=== PATIENT | male | born 1950 | race Caucasian/White ===

== ENCOUNTER 2021-03-20 21:27 | Observation (INO) | payer MEDICARE, BC ==
[2021-03-20 22:20] LABS: #Eosinphils 0.1 thou/uL (0.0-0.7); #Lymphocytes 0.8 thou/uL (1.20-3.40); #Monocytes 0.5 thou/uL (0.11-0.59); #Neutrophils 4.9 thou/uL (1.40-6.50); %Basophils 0.4 % (0.0-1.0); %Lymphocytes 12.6 % (21.0-51.0); %Monocytes 8.1 % (0.0-10.0); %Neutrophils 76.8 % (42.0-75.0); Hemoglobin 12.4 g/dL (14.0-18.0); Mean Corpuscular Hemoglobin 32.3 pg (27.0-31.0); Mean Platelet Volume 7.5 fL (7.4-10.4); Platelet Count 188 thou/uL (130-400); RBC Distribution Width 13.6 % (11.5-14.5); Red Blood Cell (RBC) Count 3.85 mill/uL (4.70-6.10); White Blood Cell (WBC) Count 6.4 thou/uL (4.8-10.8)
[2021-03-20 22:33] LABS: PTT 25.9 sec (22.9-36.1); Prothrombin Time 12.9 sec (12.0-14.7)
[2021-03-20 22:46] LABS: ALT (SGPT) 19 U/L (8-55); AST (SGOT) 19 U/L (5-34); Albumin 4.2 g/dL (3.4-4.8); Alkaline Phosphatase 67 U/L (40-110); Anion Gap 16 mmol/L (10-20); BUN (Urea Nitrogen) 26 mg/dL (8.4-25.7); Bilirubin, Total 0.3 mg/dL (0.2-1.2); CK (CPK) 68 U/L (30-200); Calc. Creatinine Clearance 0 mL/min (70-130); Calcium 8.8 mg/dL (7.8-10.44); Carbon Dioxide 23 mmol/L (23-31); Chloride 105 mmol/L (98-107); Globulin 2.8 g/dL (2.4-3.5); Glucose 123 mg/dL (83-110); Potassium 3.9 mmol/L (3.5-5.1); Sodium 140 mmol/L (136-145)
[2021-03-20] MEDS ORDERED: Atenolol 50 MG TAB PO SCH (23:15)
[2021-03-20 23:21] LABS: Acetaminophen Less than 6.0 mcg/mL (10.0-30.0); Alcohol Less than 10 mg/dL (Less than 10); Salicylate Less than 8.0 mg/dL (15.0-30.0)
[2021-03-20 23:23] LABS: Bilirubin Negative (Negative); Blood, Urine Negative (Negative); Clarity Clear (Clear); Glucose, Urine (Dipstick) Normal (Negative); Ketone, Urine Trace mg/dL (Negative); Leukocyte Negative Leu/uL (Negative); Nitrite Negative (Negative); Protein, Urine (Dipstick) 10 mg/dL (Neg-Trace); Specific Gravity, Urine 1.025 (1.002-1.036); Urobilinogen Normal mg/dL (Less than 2)
[2021-03-20 23:32] LABS: Amphetamine Not Detected (NotDetected); Barbiturates Screen Not Detected (NotDetected); Benzodiazepine Screen Not Detected (NotDetected); Cocaine Metabolite Screen Not Detected (NotDetected); Methadone Not Detected (NotDetected); Methamphetamine Not Detected (NotDetected); Opiate Screen Not Detected (NotDetected); Oxycodone Screen Not Detected (NotDetected); Phencyclidine (PCP) Not Detected (NotDetected); THC/Cannabinoid Screen Not Detected (NotDetected); Tricyclic Screen Not Detected (NotDetected)
[2021-03-20] MEDS ORDERED: Aspirin Chewable 81 MG TAB ONE (23:45)
[2021-03-21] MEDS ORDERED: Acetaminophen 325 MG TAB PO PRN (01:28)
[2021-03-21] MEDS ORDERED: Acetaminophen 650 MG Suppository PR PRN (01:28)
[2021-03-21] MEDS ORDERED: Ondansetron ODT 4 MG TAB PO PRN (01:28)
[2021-03-21] MEDS ORDERED: Ondansetron PF 4 MG/2 ML Vial IVP PRN (01:28)
[2021-03-21 01:30] VITALS: BMI 29.7
[2021-03-21] MEDS ORDERED: Dextrose 50% Abboject 50 ML SYRINGE SLOW IVP PRN (01:34)
[2021-03-21] MEDS ORDERED: HumaLOG 300 UNITS/3 ML VIAL SC PRN ×2 (01:34)
[2021-03-21] MEDS ORDERED: Dextrose 5% in Water 1,000 ML IV PRN (01:34)
[2021-03-21] MEDS ORDERED: hydrALAZINE 20 MG/ML VIAL SLOW IVP PRN (01:34)
[2021-03-21 03:01] LABS: Troponin I Less than 0.010 ng/mL (< 0.028)
[2021-03-21 04:35] LABS: #Eosinphils 0.1 thou/uL (0.0-0.7); #Lymphocytes 0.6 thou/uL (1.20-3.40); #Monocytes 0.4 thou/uL (0.11-0.59); #Neutrophils 4.3 thou/uL (1.40-6.50); %Basophils 0.7 % (0.0-1.0); %Eosinophils 2.3 % (0.0-10.0); %Lymphocytes 11.4 % (21.0-51.0); %Monocytes 7.9 % (0.0-10.0); %Neutrophils 77.8 % (42.0-75.0); Mean Corpuscular HGB CONC 34.4 g/dL (32.0-36.0); Mean Corpuscular Hemoglobin 32.6 pg (27.0-31.0); Mean Corpuscular Volume 94.9 fL (78.0-98.0); Mean Platelet Volume 7.7 fL (7.4-10.4); Platelet Count 177 thou/uL (130-400); RBC Distribution Width 13.5 % (11.5-14.5); Red Blood Cell (RBC) Count 3.67 mill/uL (4.70-6.10); White Blood Cell (WBC) Count 5.6 thou/uL (4.8-10.8)
[2021-03-21 04:50] LABS: Anion Gap 12 mmol/L (10-20); BUN (Urea Nitrogen) 23 mg/dL (8.4-25.7); Calc. Creatinine Clearance 103 mL/min (70-130); Calcium 8.9 mg/dL (7.8-10.44); Carbon Dioxide 25 mmol/L (23-31); Cardiac Risk 3.1 (Less than 4.5); Chloride 105 mmol/L (98-107); Cholesterol 115 mg/dl (< 200 Desired); Glucose 235 mg/dL (83-110); HDL Cholesterol 37 mg/dL (>60 Neg Risk); LDL Cholesterol, Calculated 43 mg/dL; Potassium 3.8 mmol/L (3.5-5.1); Sodium 138 mmol/L (136-145); Triglycerides 176 mg/dL (Less than 150)
[2021-03-21 05:01] LABS: Troponin I Less than 0.010 ng/mL (< 0.028)
[2021-03-21] MEDS ORDERED: Lorazepam 0.5 MG TAB PO PRN (07:47)
[2021-03-21] MEDS ORDERED: Aspirin 81 mg Enteric Coated Tablet PO SCH (09:00)
[2021-03-21] MEDS ORDERED: ISOVUE-370 76%-LOCM 1 ML ONE (11:39)
[2021-03-21 11:56] VITALS: BP 148/90; TEMP 98.8
[2021-03-21 17:14] LABS: SARS-CoV-2 PCR by NAA Not Detected (NotDetected)
== END 2021-03-21 15:40 | disposition home or self-care (01) ==
LOC: ERS 21:27 → NEURO 03-21 00:19
PROVIDERS: ADMIT Student in an Organized Health Care Education/Training Program; ATTEND Family Medicine
DX: R41.0 Disorientation, unspecified (principal); R47.01 Aphasia; R41.3 Other amnesia; G43.109 Migraine with aura, not intractable, without status migrainosus; E11.9 Type 2 diabetes mellitus without complications; K21.9 Gastro-esophageal reflux disease without esophagitis; I10 Essential (primary) hypertension; E03.9 Hypothyroidism, unspecified; Z85.46 Personal history of malignant neoplasm of prostate; Z79.84 Long term (current) use of oral hypoglycemic drugs; Z79.899 Other long term (current) drug therapy; Z20.822 Contact with and (suspected) exposure to COVID-19
CPT/HCPCS: 70450; 70496; 70498; 70551; 71045; 80048; 80053; 80061; 80306; 80307; 81003; 82550; 84484 ×3; 85025 ×2; 85610; 85730; 93005; 97139 ×5; 99285; U0003; U0005; 36415; 36416; G0378; Q9966

== ENCOUNTER 2021-04-25 10:22 | Outpatient (CLI) | payer MEDICARE, BC ==
[2021-04-25 12:12] LABS: #Basophils 0.1 10x3/uL (0.0-0.2); #Eosinphils 0.3 10x3/uL (0.0-0.5); #Monocytes 0.4 10x3/uL (0.0-1.1); #Neutrophils 3.2 10x3/uL (1.5-8.4); %Basophils 1.2 % (0.0-2.0); %Eosinophils 6.8 % (0.0-6.0); %Lymphocytes 17.5 % (18.0-47.0); %Monocytes 8.9 % (0.0-10.0); %Neutrophils 65.2 % (40.0-75.0); Hemoglobin 12.5 g/dL (13.5-17.5); Mean Corpuscular HGB CONC 32.5 g/dL (32.0-36.0); Mean Corpuscular Hemoglobin 30.8 pg (27.0-33.0); Mean Corpuscular Volume 94.8 fl (81.2-95.1); Mean Platelet Volume 10.9 fl (7.4-10.4); Platelet Count 235 10x3/uL (150-450); RBC Distribution Width 14.6 % (11.5-14.5); Red Blood Cell (RBC) Count 4.06 10x6/uL (4.32-5.72)
[2021-04-25 12:48] LABS: ALT (SGPT) 20 U/L (8-55); AST (SGOT) 17 U/L (5-34); Albumin 4.5 g/dL (3.4-4.8); Alkaline Phosphatase 69 U/L (40-110); Anion Gap 16 mmol/L (10-20); BUN (Urea Nitrogen) 16 mg/dL (8.4-25.7); Bilirubin, Total 0.4 mg/dL (0.2-1.2); Calc. Creatinine Clearance 0 mL/min (70-130); Calcium 9.1 mg/dL (7.8-10.44); Carbon Dioxide 23 mmol/L (23-31); Chloride 108 mmol/L (98-107); Globulin 2.6 g/dL (2.4-3.5); Glucose 157 mg/dL (83-110); Potassium 4.5 mmol/L (3.5-5.1); Protein, Total 7.1 g/dL (5.8-8.1); Sodium 142 mmol/L (136-145)
[2021-04-26 12:10] LABS: SARS-CoV-2 PCR by NAA Not Detected (NotDetected)
== END 2021-04-25 10:23 | disposition home or self-care (01) ==
LOC: LABBT 10:22
PROVIDERS: ATTEND Surgery
DX: Z01.812 Encounter for preprocedural laboratory examination (principal); K40.90 Unilateral inguinal hernia, without obstruction or gangrene, not specified as recurrent; Z20.822 Contact with and (suspected) exposure to COVID-19
CPT/HCPCS: 80053; 85025; U0003; U0005

== ENCOUNTER 2021-04-30 07:33 | Day surgery (SDC) | payer MEDICARE, BC ==
[2021-04-23 12:10] VITALS: BMI 29.5
[2021-04-30] MEDS ORDERED: Bupivacaine 0.25% HCL 30 ML VIAL ONE (09:25)
[2021-04-30] MEDS ORDERED: EPINEPHrine 1 MG/ML AMP ONE (09:25)
[2021-04-30] MEDS ORDERED: Fentanyl 100 MCG/2 ML VIAL ONE (09:29)
[2021-04-30] MEDS ORDERED: ceFAZolin 2 GM/Dextrose 50 ML IVPB ONE (09:29)
[2021-04-30] MEDS ORDERED: HYDROmorphone 0.5 MG/0.5 ML SYRINGE ONE (09:29)
[2021-04-30] MEDS ORDERED: Dexamethasone 20 MG/5 ML VIAL ONE (09:34)
[2021-04-30] MEDS ORDERED: Ondansetron PF 4 MG/2 ML Vial ONE (09:34)
[2021-04-30] MEDS ORDERED: Lidocaine 1% PF 5 ML VIAL ONE (09:34)
[2021-04-30] MEDS ORDERED: PROPOFOL 200 MG/20 ML VIAL ONE (09:34)
[2021-04-30] MEDS ORDERED: Glycopyrrolate 0.2 MG/ML 5 ML SYRINGE ONE (09:34)
[2021-04-30] MEDS ORDERED: Rocuronium Bromide 10 MG/ML (10ML VIAL) ONE (09:34)
[2021-04-30] MEDS ORDERED: HYDROcodone/Acetaminophen 5/325 mg Tablet ONE (11:30)
== END 2021-04-30 12:45 | disposition home or self-care (01) ==
LOC: SDC 07:33
PROVIDERS: ATTEND Surgery
PROC: 0YU50JZ Supplement Right Inguinal Region with Synthetic Substitute, Open Approach (ICD-10-PCS; principal; 2021-04-30)
DX: K40.90 Unilateral inguinal hernia, without obstruction or gangrene, not specified as recurrent (principal); K21.9 Gastro-esophageal reflux disease without esophagitis; I42.9 Cardiomyopathy, unspecified; G43.909 Migraine, unspecified, not intractable, without status migrainosus; Z79.82 Long term (current) use of aspirin; Z79.84 Long term (current) use of oral hypoglycemic drugs; Z79.899 Other long term (current) drug therapy
CPT/HCPCS: C1781; J0171; J0690; J1100; J1170; J2405; J2704; J3010; S0020

== ENCOUNTER 2021-05-01 12:29 | Emergency (ER) | payer MEDICARE, BC ==
[2021-05-01 13:29] LABS: #Eosinphils 0.1 thou/uL (0.0-0.7); #Lymphocytes 1.1 thou/uL (1.20-3.40); #Monocytes 0.8 thou/uL (0.11-0.59); #Neutrophils 6.1 thou/uL (1.40-6.50); %Basophils 0.1 % (0.0-1.0); %Eosinophils 1.3 % (0.0-10.0); %Lymphocytes 13.8 % (21.0-51.0); %Monocytes 9.6 % (0.0-10.0); %Neutrophils 75.1 % (42.0-75.0); Hemoglobin 13.4 g/dL (14.0-18.0); Mean Corpuscular HGB CONC 34.2 g/dL (32.0-36.0); Mean Corpuscular Hemoglobin 31.8 pg (27.0-31.0); Mean Platelet Volume 7.7 fL (7.4-10.4); Platelet Count 230 thou/uL (130-400); RBC Distribution Width 14.1 % (11.5-14.5); White Blood Cell (WBC) Count 8.1 thou/uL (4.8-10.8)
[2021-05-01 13:49] LABS: Acetaminophen Less than 6.0 mcg/mL (10.0-30.0); Alcohol Less than 10 mg/dL (Less than 10); Salicylate Less than 8.0 mg/dL (15.0-30.0)
[2021-05-01 13:51] LABS: ALT (SGPT) 18 U/L (8-55); AST (SGOT) 16 U/L (5-34); Albumin 4.6 g/dL (3.4-4.8); Alkaline Phosphatase 78 U/L (40-110); Anion Gap 16 mmol/L (10-20); BUN (Urea Nitrogen) 13 mg/dL (8.4-25.7); Bilirubin, Total 0.5 mg/dL (0.2-1.2); Calc. Creatinine Clearance 0 mL/min (70-130); Calcium 10.3 mg/dL (7.8-10.44); Carbon Dioxide 25 mmol/L (23-31); Chloride 104 mmol/L (98-107); Globulin 3.2 g/dL (2.4-3.5); Glucose 204 mg/dL (83-110); Potassium 3.8 mmol/L (3.5-5.1); Protein, Total 7.8 g/dL (5.8-8.1); Sodium 141 mmol/L (136-145)
[2021-05-01 14:33] LABS: Bilirubin Negative (Negative); Blood, Urine Negative (Negative); Clarity Clear (Clear); Glucose, Urine (Dipstick) Normal (Negative); Ketone, Urine Negative (Negative); Leukocyte Negative Leu/uL (Negative); Nitrite Negative (Negative); Protein, Urine (Dipstick) Negative (Neg-Trace); Specific Gravity, Urine 1.018 (1.002-1.036); Urobilinogen Normal mg/dL (Less than 2)
[2021-05-01 14:43] LABS: Amphetamine Not Detected (NotDetected); Barbiturates Screen Not Detected (NotDetected); Benzodiazepine Screen Not Detected (NotDetected); Cocaine Metabolite Screen Not Detected (NotDetected); Methadone Not Detected (NotDetected); Methamphetamine Not Detected (NotDetected); Opiate Screen Detected (NotDetected); Oxycodone Screen Not Detected (NotDetected); Phencyclidine (PCP) Not Detected (NotDetected); THC/Cannabinoid Screen Not Detected (NotDetected); Tricyclic Screen Not Detected (NotDetected)
== END 2021-05-01 15:33 | disposition home or self-care (01) ==
LOC: ERS 12:29
DX: R44.1 Visual hallucinations (principal); M10.9 Gout, unspecified; K21.9 Gastro-esophageal reflux disease without esophagitis; I10 Essential (primary) hypertension; E03.9 Hypothyroidism, unspecified; E11.9 Type 2 diabetes mellitus without complications; R29.700 NIHSS score 0; Z79.899 Other long term (current) drug therapy; Z79.82 Long term (current) use of aspirin
CPT/HCPCS: 71045; 80053; 80306; 80307; 81003; 85025

== ENCOUNTER 2021-08-01 12:02 | Outpatient (CLI) | payer MEDICARE, BC ==
[2021-08-01 13:59] LABS: #Basophils 0.1 10x3/uL (0.0-0.2); #Eosinphils 0.2 10x3/uL (0.0-0.5); #Monocytes 0.7 10x3/uL (0.0-1.1); #Neutrophils 6.6 10x3/uL (1.5-8.4); %Basophils 0.8 % (0.0-2.0); %Lymphocytes 12.2 % (18.0-47.0); %Monocytes 7.7 % (0.0-10.0); Hemoglobin 13.2 g/dL (13.5-17.5); Mean Corpuscular HGB CONC 33.2 g/dL (32.0-36.0); Mean Corpuscular Hemoglobin 30.6 pg (27.0-33.0); Mean Corpuscular Volume 91.9 fl (81.2-95.1); Platelet Count 250 10x3/uL (150-450); RBC Distribution Width 14.5 % (11.5-14.5); Red Blood Cell (RBC) Count 4.32 10x6/uL (4.32-5.72); White Blood Cell (WBC) Count 8.6 10x3/uL (3.5-10.5)
[2021-08-01 14:24] LABS: ALT (SGPT) 19 U/L (8-55); AST (SGOT) 19 U/L (5-34); Albumin 4.8 g/dL (3.4-4.8); Alkaline Phosphatase 98 U/L (40-110); Anion Gap 16 mmol/L (10-20); BUN (Urea Nitrogen) 16 mg/dL (8.4-25.7); Bilirubin, Total 0.4 mg/dL (0.2-1.2); Calc. Creatinine Clearance 0 mL/min (70-130); Calcium 9.4 mg/dL (7.8-10.44); Carbon Dioxide 24 mmol/L (23-31); Chloride 103 mmol/L (98-107); Globulin 2.8 g/dL (2.4-3.5); Glucose 164 mg/dL (83-110); Potassium 4.4 mmol/L (3.5-5.1); Protein, Total 7.6 g/dL (5.8-8.1); Sodium 139 mmol/L (136-145)
[2021-08-02 12:30] LABS: SARS-CoV-2 PCR by NAA Not Detected (NotDetected)
== END 2021-08-01 12:03 | disposition home or self-care (01) ==
LOC: LABBT 12:02
PROVIDERS: ATTEND Surgery
DX: Z01.818 Encounter for other preprocedural examination (principal); K40.91 Unilateral inguinal hernia, without obstruction or gangrene, recurrent; Z20.822 Contact with and (suspected) exposure to COVID-19
CPT/HCPCS: 80053; 85025; 93005; U0003; U0005; 93010

== ENCOUNTER 2021-08-06 06:06 | Day surgery (SDC) | payer MEDICARE, BC ==
[2021-08-04 15:17] VITALS: BMI 28.7
[2021-08-06] MEDS ORDERED: Famotidine/PF 20 mg/2ml Vial ONE (06:38)
[2021-08-06] MEDS ORDERED: Fentanyl 250 MCG/5 ML VIAL ONE (06:38)
[2021-08-06] MEDS ORDERED: Lidocaine 1% w/Epinephrine 1:100K 20 ML VIAL ONE (06:42)
[2021-08-06] MEDS ORDERED: Bupivacaine 0.25% 10 ML VIAL ONE (06:42)
[2021-08-06] MEDS ORDERED: Phenylephrine 10 MG/ML VIAL ONE (07:28)
[2021-08-06] MEDS ORDERED: ceFAZolin (BATCH) 2 GM/100 ML BAG ONE ×2 (07:30→07:31)
[2021-08-06] MEDS ORDERED: Lidocaine 1% PF 5 ML VIAL ONE (07:48)
[2021-08-06] MEDS ORDERED: ePHEDrine 50 MG/ML VIAL ONE (07:48)
[2021-08-06] MEDS ORDERED: Rocuronium Bromide 10 MG/ML (10ML VIAL) ONE (07:48)
[2021-08-06] MEDS ORDERED: PHENYLEPHRINE-NS 100 MCG/ML 10 ML SYRINGE ONE (07:48)
[2021-08-06] MEDS ORDERED: Glycopyrrolate 0.2 MG/ML 5 ML SYRINGE ONE (07:48)
[2021-08-06] MEDS ORDERED: Ondansetron PF 4 MG/2 ML Vial ONE ×2 (07:48→11:07)
[2021-08-06] MEDS ORDERED: Ketorolac Tromethamine 30 MG/ML VIAL ONE (07:48)
[2021-08-06] MEDS ORDERED: PROPOFOL 200 MG/20 ML VIAL ONE (07:48)
[2021-08-06] MEDS ORDERED: fentaNYL Citrate/PF 100 MCG/2 ML SYRINGE ONE (08:32)
[2021-08-06] MEDS ORDERED: hydrALAZINE 20 MG/ML VIAL ONE (08:33)
[2021-08-06] MEDS ORDERED: Fentanyl 100 MCG/2 ML VIAL ONE (10:39)
[2021-08-06] MEDS ORDERED: Tamsulosin HCl 0.4 MG CAP ONE (13:27)
== END 2021-08-06 14:25 | disposition home or self-care (01) ==
LOC: SDC 06:06
PROVIDERS: ATTEND Surgery
PROC: 0YU54JZ Supplement Right Inguinal Region with Synthetic Substitute, Percutaneous Endoscopic Approach (ICD-10-PCS; principal; 2021-08-06)
PROC: 8E0W4CZ Robotic Assisted Procedure of Trunk Region, Percutaneous Endoscopic Approach (ICD-10-PCS; 2021-08-06)
DX: K40.91 Unilateral inguinal hernia, without obstruction or gangrene, recurrent (principal); K21.9 Gastro-esophageal reflux disease without esophagitis; I42.9 Cardiomyopathy, unspecified; G43.909 Migraine, unspecified, not intractable, without status migrainosus; Z79.82 Long term (current) use of aspirin; Z79.84 Long term (current) use of oral hypoglycemic drugs; Z79.899 Other long term (current) drug therapy; Z88.5 Allergy status to narcotic agent
CPT/HCPCS: C1781; J0360; J0690; J1885; J2370; J2405; J2704; J3010; J3490; S0020; S0028

== ENCOUNTER 2023-02-27 12:57 | Inpatient (IN) | payer MEDICARE, BC ==
[~2023-02-27 12:57] MED LIST: Iopamidol-370 76% 500 ML MDV (1 ML CHARGE) ONE
[2023-02-27] MEDS ORDERED: diphenhydrAMINE 50 MG/ML VIAL ONE (13:36)
[2023-02-27] MEDS ORDERED: Metoclopramide HCl 10 MG/2 ML VIAL ONE (13:37)
[2023-02-27 13:44] LABS: #Monocytes 0.5 thou/uL (0.11-0.59); #Neutrophils 5.8 thou/uL (1.40-6.50); %Basophils 0.1 % (0.0-1.0); %Lymphocytes 8.9 % (21.0-51.0); %Monocytes 7.3 % (0.0-10.0); %Neutrophils 83.1 % (42.0-75.0); Hematocrit 37.2 % (42.0-52.0); Hemoglobin 12.7 g/dL (14.0-18.0); Mean Corpuscular HGB CONC 34.1 g/dL (32.0-36.0); Mean Corpuscular Volume 90.7 fl (78.0-98.0); Mean Platelet Volume 10.3 fL (7.4-10.4); Platelet Count 205 10x3/uL (130-400); RBC Distribution Width 13.5 % (11.5-14.5)
[2023-02-27 14:07] LABS: ALT (SGPT) 15 U/L (8-55); AST (SGOT) 18 U/L (5-34); Albumin 4.6 g/dL (3.4-4.8); Alkaline Phosphatase 71 U/L (40-110); Anion Gap 17 mmol/L (10-20); BUN (Urea Nitrogen) 13 mg/dL (8.4-25.7); Bilirubin, Total 0.5 mg/dL (0.2-1.2); Calc. Creatinine Clearance 0 mL/min (70-130); Calcium 9.7 mg/dL (7.8-10.44); Carbon Dioxide 25 mmol/L (23-31); Chloride 103 mmol/L (98-107); Estimated GFR 78; Glucose 220 mg/dL (83-110); Potassium 3.8 mmol/L (3.5-5.1); Protein, Total 7.6 g/dL (5.8-8.1); Sodium 141 mmol/L (136-145)
[2023-02-27 14:10] LABS: Troponin I Less than 0.010 ng/mL (< 0.028)
[2023-02-27 14:13] LABS: PTT 23.8 sec (22.9-36.1); Prothrombin Time 13.4 sec (12.0-14.7)
[2023-02-27] MEDS ORDERED: Acetaminophen 500 MG TAB ONE (14:28)
[2023-02-27] MEDS ORDERED: Ondansetron PF 4 MG/2 ML Vial ONE (14:28)
[2023-02-27] MEDS ORDERED: Morphine 4 MG/ML VIAL ONE (14:28)
[2023-02-27] MEDS ORDERED: niCARdipine 25 MG/10 ML SDV ONE (14:45)
[2023-02-27] MEDS ORDERED: Acetaminophen 325 MG TAB PO PRN (15:22)
[2023-02-27] MEDS ORDERED: niCARdipine 25 MG in Sodium Chloride 0.9% 250 ML 250 ML IVPB PRN ×2 (15:23→15:28)
[2023-02-27] MEDS ORDERED: Acetaminophen/Codeine 30-300mg Tablet PO PRN ×2 (15:25)
[2023-02-27] MEDS ORDERED: Glucagon 1 MG/ML KIT IM PRN (15:27)
[2023-02-27] MEDS ORDERED: Dextrose 5% in Water 1,000 ML IV PRN (15:27)
[2023-02-27] MEDS ORDERED: Dextrose 50% Abboject 50 ML SYRINGE SLOW IVP PRN (15:27)
[2023-02-27] MEDS ORDERED: guaiFENesin/Codeine 200 mg/20 mg 10 ml Cup PO PRN (15:37)
[2023-02-27] MEDS ORDERED: guaiFENesin/Codeine 200 mg/20 mg 10 ml Cup PO SCH (16:00)
[2023-02-27] MEDS ORDERED: Lorazepam 2 MG/ML VIAL SLOW IVP SCH (17:05)
[2023-02-27] MEDS ORDERED: LORazepam 2 MG/ML SYR.(CARPUJECT) ONE (17:06)
[2023-02-27] MEDS ORDERED: predniSONE 20 MG TAB PO SCH (18:00)
[2023-02-27] MEDS ORDERED: FLU VACC QS2023(65UP)/MF59C/PF 60 MCG/0.5 ML SYRINGE IM ONE (20:00)
[2023-02-27] MEDS: Amoxicillin/Potassium Clav 875 MG TAB PO SCH (20:42)
[2023-02-27] MEDS ORDERED: Dexamethasone 10 MG/ML VIAL SLOW IVP SCH (21:45)
[2023-02-27] MEDS ORDERED: levETIRAcetam 500 MG/5 ML VIAL SLOW IVP SCH (21:45)
[2023-02-28 05:13] VITALS: BMI 29.7
[2023-02-28 05:17] LABS: #Monocytes 0.2 thou/uL (0.11-0.59); %Basophils 0.2 % (0.0-1.0); %Monocytes 3.5 % (0.0-10.0); %Neutrophils 90.7 % (42.0-75.0); Hemoglobin 11.7 g/dL (14.0-18.0); Mean Corpuscular HGB CONC 33.4 g/dL (32.0-36.0); Mean Corpuscular Hemoglobin 30.5 pg (27.0-31.0); Mean Corpuscular Volume 91.4 fl (78.0-98.0); Mean Platelet Volume 10.1 fL (7.4-10.4); Platelet Count 177 10x3/uL (130-400); RBC Distribution Width 13.5 % (11.5-14.5); Red Blood Cell (RBC) Count 3.83 mill/uL (4.70-6.10); White Blood Cell (WBC) Count 6.6 10x3/uL (4.8-10.8)
[2023-02-28 05:41] LABS: Anion Gap 14 mmol/L (10-20); BUN (Urea Nitrogen) 12 mg/dL (8.4-25.7); Calc. Creatinine Clearance 100 mL/min (70-130); Calcium 8.7 mg/dL (7.8-10.44); Carbon Dioxide 24 mmol/L (23-31); Chloride 104 mmol/L (98-107); Estimated GFR 92; Glucose 261 mg/dL (83-110); Sodium 138 mmol/L (136-145)
[2023-02-28] MEDS: Dexamethasone 4 MG TAB PO SCH ×4 (06:09→23:46)
[2023-02-28] MEDS: HumaLOG 300 UNITS/3 ML VIAL SC PRN ×4 (06:10→21:57)
[2023-02-28] MEDS: Amoxicillin/Potassium Clav 875 MG TAB PO SCH ×2 (08:02→20:39)
[2023-02-28] MEDS: levETIRAcetam 500 MG TAB PO SCH ×2 (08:02→20:39)
[2023-02-28] MEDS: SUMAtriptan Succinate 25 MG TAB PO PRN ×2 (09:18→09:40)
[2023-02-28] MEDS ORDERED: SUMAtriptan Succinate 25 MG TAB PO SCH (09:30)
[2023-02-28] MEDS ORDERED: guaiFENesin/Codeine 200 mg/20 mg 10 ml Cup PO PRN (09:52)
[2023-02-28] MEDS ORDERED: Atenolol 50 MG TAB PO SCH (10:15)
[2023-02-28] MEDS ORDERED: SUMAtriptan Succinate 25 MG TAB PO PRN (11:30)
[2023-02-28] MEDS ORDERED: Losartan 25 MG TAB PO SCH (11:45)
[2023-02-28] MEDS ORDERED: Labetalol HCl 100 MG/20 ML VIAL SLOW IVP PRN (12:35)
[2023-02-28] MEDS: Morphine 2 MG/ML VIAL SLOW IVP PRN ×2 (12:49→20:59)
[2023-02-28] MEDS: hydrALAZINE 20 MG/ML VIAL SLOW IVP PRN ×2 (13:42→15:13)
[2023-02-28] MEDS: Morphine 4 MG/ML VIAL SLOW IVP PRN (16:31)
[2023-02-28] MEDS: Atenolol 50 MG TAB PO SCH (18:21)
[2023-02-28] MEDS: guaiFENesin ER 600 MG TAB PO SCH (20:39)
[2023-03-01] MEDS: Morphine 4 MG/ML VIAL SLOW IVP PRN (00:21)
[2023-03-01] MEDS: Dexamethasone 4 MG TAB PO SCH ×3 (05:37→17:22)
[2023-03-01] MEDS: HumaLOG 300 UNITS/3 ML VIAL SC PRN ×3 (06:36→16:03)
[2023-03-01] MEDS: Amoxicillin/Potassium Clav 875 MG TAB PO SCH ×2 (07:40→20:28)
[2023-03-01] MEDS: Levothyroxine Sodium 75 MCG TAB PO SCH (07:40)
[2023-03-01] MEDS: Losartan 25 MG TAB PO SCH (07:40)
[2023-03-01] MEDS: levETIRAcetam 500 MG TAB PO SCH ×2 (07:41→20:28)
[2023-03-01] MEDS: guaiFENesin ER 600 MG TAB PO SCH ×2 (07:41→20:28)
[2023-03-01 10:44] LABS: Anion Gap 18 mmol/L (10-20); BUN (Urea Nitrogen) 15 mg/dL (8.4-25.7); Calc. Creatinine Clearance 103 mL/min (70-130); Carbon Dioxide 22 mmol/L (23-31); Chloride 101 mmol/L (98-107); Estimated GFR 93; Glucose 202 mg/dL (83-110); Potassium 3.5 mmol/L (3.5-5.1); Sodium 137 mmol/L (136-145)
[2023-03-01] MEDS: Benzonatate 100 MG CAP PO PRN (17:46)
[2023-03-01] MEDS ORDERED: Ondansetron ODT 4 MG TAB PO PRN (17:50)
[2023-03-01] MEDS ORDERED: Amlodipine 5 MG TAB PO SCH (18:15)
[2023-03-01] MEDS: Atenolol 50 MG TAB PO SCH (18:33)
[2023-03-01] MEDS: Insulin Glargine 30 UNITS/0.3 ML VIAL SC SCH (20:33)
[2023-03-02] MEDS: Dexamethasone 4 MG TAB PO SCH ×4 (00:56→18:27)
[2023-03-02] MEDS: hydrALAZINE 20 MG/ML VIAL SLOW IVP PRN ×2 (01:30→11:37)
[2023-03-02 05:16] LABS: Anion Gap 18 mmol/L (10-20); BUN (Urea Nitrogen) 15 mg/dL (8.4-25.7); Calc. Creatinine Clearance 97 mL/min (70-130); Calcium 8.8 mg/dL (7.8-10.44); Carbon Dioxide 21 mmol/L (23-31); Chloride 104 mmol/L (98-107); Estimated GFR 91; Glucose 228 mg/dL (83-110); Potassium 3.9 mmol/L (3.5-5.1); Sodium 139 mmol/L (136-145)
[2023-03-02] MEDS: Benzonatate 100 MG CAP PO PRN ×3 (05:58→20:50)
[2023-03-02] MEDS: HumaLOG 300 UNITS/3 ML VIAL SC PRN ×2 (06:53→17:21)
[2023-03-02] MEDS: Lorazepam 2 MG/ML VIAL SLOW IVP PRN (08:03)
[2023-03-02] MEDS: Levothyroxine Sodium 75 MCG TAB PO SCH (08:06)
[2023-03-02] MEDS: levETIRAcetam 500 MG TAB PO SCH ×2 (08:58→20:54)
[2023-03-02] MEDS: Amoxicillin/Potassium Clav 875 MG TAB PO SCH ×2 (08:58→20:54)
[2023-03-02] MEDS: Losartan 25 MG TAB PO SCH (08:58)
[2023-03-02] MEDS: guaiFENesin ER 600 MG TAB PO SCH ×2 (08:58→20:55)
[2023-03-02] MEDS ORDERED: Amlodipine 5 MG TAB PO SCH (09:00)
[2023-03-02] MEDS ORDERED: Magnevist 469MG/ML 20 ML VIAL ONE (09:55)
[2023-03-02] MEDS ORDERED: NIFEdipine XL 60 MG ER.TAB PO SCH (10:45)
[2023-03-02] MEDS: Atenolol 50 MG TAB PO SCH (18:27)
[2023-03-02] MEDS: Insulin Glargine 30 UNITS/0.3 ML VIAL SC SCH (20:49)
[2023-03-02] MEDS ORDERED: guaiFENesin/Codeine 200 mg/20 mg 10 ml Cup PO SCH (23:30)
[2023-03-03] MEDS: Dexamethasone 4 MG TAB PO SCH ×4 (00:15→18:05)
[2023-03-03] MEDS: Ondansetron PF 4 MG/2 ML Vial IVP PRN (00:40)
[2023-03-03 05:26] LABS: Anion Gap 15 mmol/L (10-20); BUN (Urea Nitrogen) 25 mg/dL (8.4-25.7); Calc. Creatinine Clearance 89 mL/min (70-130); Calcium 8.7 mg/dL (7.8-10.44); Carbon Dioxide 22 mmol/L (23-31); Chloride 102 mmol/L (98-107); Estimated GFR 85; Glucose 255 mg/dL (83-110); Potassium 3.7 mmol/L (3.5-5.1); Sodium 135 mmol/L (136-145)
[2023-03-03] MEDS: Levothyroxine Sodium 75 MCG TAB PO SCH (06:21)
[2023-03-03] MEDS: HumaLOG 300 UNITS/3 ML VIAL SC PRN ×3 (06:22→18:05)
[2023-03-03] MEDS: levETIRAcetam 500 MG TAB PO SCH ×2 (09:03→21:33)
[2023-03-03] MEDS: Losartan 25 MG TAB PO SCH (09:03)
[2023-03-03] MEDS: NIFEdipine XL 60 MG ER.TAB PO SCH (09:03)
[2023-03-03] MEDS: Amoxicillin/Potassium Clav 875 MG TAB PO SCH ×2 (09:03→21:33)
[2023-03-03] MEDS: guaiFENesin ER 600 MG TAB PO SCH ×3 (09:04→21:32)
[2023-03-03] MEDS: Benzonatate 100 MG CAP PO PRN (09:04)
[2023-03-03] MEDS: Insulin Glargine 30 UNITS/0.3 ML VIAL SC SCH ×2 (09:05→21:33)
[2023-03-03] MEDS: Lorazepam 2 MG/ML VIAL SLOW IVP PRN (10:24)
[2023-03-03] MEDS ORDERED: Lacosamide 50 mg Tablet PO SCH ×2 (10:29→10:45)
[2023-03-03] MEDS: Atenolol 50 MG TAB PO SCH (18:05)
[2023-03-03] MEDS: Lacosamide 50 mg Tablet PO SCH (21:33)
[2023-03-04] MEDS: Dexamethasone 4 MG TAB PO SCH ×4 (00:50→17:49)
[2023-03-04] MEDS: HumaLOG 300 UNITS/3 ML VIAL SC PRN (05:57)
[2023-03-04 06:07] LABS: Anion Gap 15 mmol/L (10-20); BUN (Urea Nitrogen) 35 mg/dL (8.4-25.7); Calc. Creatinine Clearance 90 mL/min (70-130); Calcium 8.8 mg/dL (7.8-10.44); Carbon Dioxide 21 mmol/L (23-31); Chloride 104 mmol/L (98-107); Estimated GFR 87; Glucose 260 mg/dL (83-110); Potassium 3.7 mmol/L (3.5-5.1); Sodium 136 mmol/L (136-145)
[2023-03-04] MEDS: Levothyroxine Sodium 75 MCG TAB PO SCH (07:14)
[2023-03-04] MEDS: levETIRAcetam 500 MG TAB PO SCH ×2 (08:42→20:49)
[2023-03-04] MEDS: Amoxicillin/Potassium Clav 875 MG TAB PO SCH ×2 (08:42→20:49)
[2023-03-04] MEDS: guaiFENesin ER 600 MG TAB PO SCH ×2 (08:43→20:50)
[2023-03-04] MEDS: Losartan 25 MG TAB PO SCH (08:43)
[2023-03-04] MEDS: NIFEdipine XL 60 MG ER.TAB PO SCH (08:43)
[2023-03-04] MEDS: Lacosamide 50 mg Tablet PO SCH ×2 (08:43→20:50)
[2023-03-04] MEDS: Insulin Glargine 30 UNITS/0.3 ML VIAL SC SCH ×2 (08:44→20:53)
[2023-03-04] MEDS: Ondansetron PF 4 MG/2 ML Vial IVP PRN (09:04)
[2023-03-04] MEDS: Atenolol 50 MG TAB PO SCH (20:49)
[2023-03-05] MEDS: Dexamethasone 1 MG TAB PO SCH ×3 (01:24→13:55)
[2023-03-05 04:49] LABS: Anion Gap 14 mmol/L (10-20); BUN (Urea Nitrogen) 35 mg/dL (8.4-25.7); Calc. Creatinine Clearance 96 mL/min (70-130); Calcium 9.1 mg/dL (7.8-10.44); Carbon Dioxide 21 mmol/L (23-31); Chloride 106 mmol/L (98-107); Estimated GFR 90; Glucose 238 mg/dL (83-110); Potassium 3.9 mmol/L (3.5-5.1); Sodium 137 mmol/L (136-145)
[2023-03-05] MEDS: HumaLOG 300 UNITS/3 ML VIAL SC PRN ×2 (06:11→13:45)
[2023-03-05] MEDS: Levothyroxine Sodium 75 MCG TAB PO SCH (06:11)
[2023-03-05] MEDS ORDERED: Melatonin 3 MG TAB PO PRN (08:21)
[2023-03-05] MEDS: Amoxicillin/Potassium Clav 875 MG TAB PO SCH (09:36)
[2023-03-05] MEDS: levETIRAcetam 500 MG TAB PO SCH (09:36)
[2023-03-05] MEDS: Lacosamide 50 mg Tablet PO SCH (09:36)
[2023-03-05] MEDS: guaiFENesin ER 600 MG TAB PO SCH ×2 (09:36→09:57)
[2023-03-05] MEDS: NIFEdipine XL 60 MG ER.TAB PO SCH (09:36)
[2023-03-05] MEDS: Losartan 25 MG TAB PO SCH (09:37)
[2023-03-05] MEDS: Insulin Glargine 30 UNITS/0.3 ML VIAL SC SCH (09:37)
[2023-03-05 12:58] VITALS: BP 110/69; TEMP 97.7
[2023-03-05] MEDS ORDERED: metFORMIN XR 500 MG ER.TAB PO SCH (17:00)
[2023-03-06] MEDS ORDERED: Dexamethasone 1 MG TAB PO SCH
[2023-03-06] MEDS ORDERED: Levothyroxine Sodium 75 MCG TAB PO SCH (06:00)
[2023-03-07] MEDS ORDERED: Dexamethasone 1 MG TAB PO SCH
== END 2023-03-05 14:25 | DRG 64 ==
LOC: ERS 12:57 → CCU 15:04 → 2SE 03-02 18:37
PROVIDERS: ADMIT Internal Medicine; ATTEND Internal Medicine
DX: I62.9 Nontraumatic intracranial hemorrhage, unspecified (principal); G93.6 Cerebral edema; I10 Essential (primary) hypertension; Z88.8 Allergy status to other drugs, medicaments and biological substances; Z79.899 Other long term (current) drug therapy; Z79.84 Long term (current) use of oral hypoglycemic drugs; Z79.82 Long term (current) use of aspirin; M10.9 Gout, unspecified; K21.9 Gastro-esophageal reflux disease without esophagitis; E03.9 Hypothyroidism, unspecified; E11.9 Type 2 diabetes mellitus without complications; Z98.890 Other specified postprocedural states; G43.909 Migraine, unspecified, not intractable, without status migrainosus; I16.0 Hypertensive urgency; J20.9 Acute bronchitis, unspecified; R56.9 Unspecified convulsions; Z79.4 Long term (current) use of insulin
CPT/HCPCS: 36415; 36416; 70450; 70496; 70553; 71045; 80048; 80053; 84484; 85025; 85610; 85730; 93005; 93306; 95711; 95819; 96361; 96365; 96375; A9579; J0360; J1100; J1200; J1815; J1953; J2060; J2270; J2272; J2405; J2765; J7050; J8540; Q9967

== ENCOUNTER 2023-03-12 10:29 | Outpatient (CLI) | payer BC, MEDICARE | END 2023-03-12 10:30 | disposition home or self-care (01) | LOC: CT 10:29 | PROVIDERS: ATTEND Physical Medicine & Rehabilitation | DX: I61.8 Other nontraumatic intracerebral hemorrhage (principal) | CPT/HCPCS: 70450 ==

== ENCOUNTER 2023-06-11 12:09 | Outpatient (CLI) | payer MEDICARE | END 2023-06-11 12:10 | disposition home or self-care (01) | LOC: SCSMRI 12:09 | PROVIDERS: ATTEND Surgery | DX: I61.9 Nontraumatic intracerebral hemorrhage, unspecified (principal) | CPT/HCPCS: 70553 ==